=== PATIENT | male | born 1960 | race Hispanic/Latino ===

== ENCOUNTER → 2019-04-26 | Outpatient (CLI) | payer OTHER | END | disposition home or self-care (01) | LOC: RAH 11:34 | PROVIDERS: ATTEND Internal Medicine Cardiovascular Disease | DX: I25.10 Atherosclerotic heart disease of native coronary artery without angina pectoris (principal); K44.9 Diaphragmatic hernia without obstruction or gangrene; I10 Essential (primary) hypertension | CPT/HCPCS: 71250 ==

== ENCOUNTER → 2019-04-27 | Outpatient (CLI) | payer OTHER ==
[~2019-04-27] MED LIST: IOHEXOL 350 MG/ML 100ML INFUS..BTL IV ONE
== END | disposition home or self-care (01) ==
LOC: RAH 08:48
PROVIDERS: ATTEND Internal Medicine Cardiovascular Disease
DX: I25.10 Atherosclerotic heart disease of native coronary artery without angina pectoris (principal); I10 Essential (primary) hypertension
CPT/HCPCS: 75574; Q9967

== ENCOUNTER 2019-09-26 06:00 | Day surgery (SDC) | payer OTHER ==
[2019-09-23 12:40] VITALS: BP 151/87
[2019-09-23 13:03] LABS: BASOPHILS % (AUTO) 1.1 % (0.0-5.0); EOSINOPHILS % (AUTO) 3.2 % (0.0-8.0); LYMPHOCYTES % (AUTO) 40.9 % (21.0-51.0); MEAN CORPUSCULAR HEMOGLOBIN 30.6 pg (27.0-33.0); MEAN CORPUSCULAR HGB CONC 34.7 g/dL (32.0-36.0); MEAN CORPUSCULAR VOLUME 88.2 fL (79-99); MONOCYTES % (AUTO) 7.6 % (3.0-13.0); NEUTROPHILS % (AUTO) 47.2 % (40.0-77.0); PLATELET COUNT (AUTO) 233 K/uL (130-400); RED BLOOD CELL COUNT(AUTO) 4.87 MIL/uL (4.50-6.20); RED CELL DISTRIBUTION WIDTH 13.5 % (11.0-15.5); WHITE BLOOD COUNT (AUTO) 5.3 K/uL (4.8-10.8)
[2019-09-23 13:04] LABS: APPEARANCE,URINE Clear (CLEAR); BILIRUBIN,URINE Negative (NEGATIVE); COLOR,URINE Yellow (YELLOW); GLUCOSE, URINE (UA) Negative (NEGATIVE); KETONES,URINE Negative (NEGATIVE); LEUKOCYTE ESTERASE ,URINE Negative (NEGATIVE); NITRATE,URINE Negative (NEGATIVE); OCCULT BLOOD,URINE Negative (NEGATIVE); PROTEIN,URINE Negative (NEGATIVE)
[2019-09-23 13:10] LABS: CREATININE 0.7 mg/dL (0.5-1.5); POTASSIUM 3.6 mmol/L (3.5-5.1)
[2019-09-23 13:13] LABS: INR 0.96 (0.85-1.15); PROTHROMBIN TIME 10.1 SEC (9.6-11.6)
[~2019-09-26] VITALS: Ht 162.6 cm; Wt 72.9 kg
[2019-09-26] VITALS (9 sets, daily range): BP systolic 119–156; BP diastolic 72–87
[~2019-09-26 06:00] MED LIST changes: +ASPI-1181 PO; +ATOR20TA65 PO; +FINA5TAB41 PO; -IOHEXOL 350 MG/ML 100ML INFUS..BTL IV ONE; +METHYLPREDNISOLONE SOD SUCC 125MG/2ML VIAL IVP SCH; +METO25TA6 PO; +SODIUM CHLORIDE 0.9% 500ML 500 ML IV SCH
--- NOTE | 2019-09-26 06:10 | NUR ---
PRE-PROCEDURE RECEIVED TO DAY 14 VIA AMBULATING FOR SCHEDULED LHC. AWAKE IN NO ACUTE DISTRESS. DENIES CHEST PAIN/SOA. CONNECTED TO CONTINUOUS CARDIOPULMONARY MONITORING. SIDE RAILS UP X2, BED IN LOWEST POSITION, AND CALL LIGHT W/IN REACH.
[2019-09-26] MEDS ORDERED: SODIUM CHLORIDE 0.9% 1000ML 1,000 ML IV ONE (06:19)
[2019-09-26] MEDS ORDERED: MONT10TA21 PO (06:56)
[2019-09-26] MEDS ORDERED: NITROGLYCERIN 5 MG/ML 10 ML VIAL IV ONE (07:20)
[2019-09-26] MEDS ORDERED: IOHEXOL 350 MG/ML 100ML INFUS..BTL IV ONE (07:20)
[2019-09-26] MEDS ORDERED: MIDAZOLAM HCL 1 MG/ML 2ML VIAL ONE (07:20)
[2019-09-26] MEDS ORDERED: IOHEXOL-350 50ML VIAL IV ONE (07:20)
[2019-09-26] MEDS ORDERED: FENTANYL CITRATE PF 50 MCG/1 ML 2ML VIAL ONE (07:21)
[2019-09-26] MEDS ORDERED: LIDOCAINE HCL 2% 20ML ONE (07:21)
--- NOTE | 2019-09-26 07:25 | NUR ---
PROCEDURE TRANSFERRED TO [facility] VIA BED FOR SCHEDULED LHC BY MATTHEW CINTRON RN. AWAKE IN NO ACUTE DISTRESS. DENIES CHEST PAIN.
[2019-09-26] MEDS ORDERED: SODIUM CHLORIDE 0.9% 1000ML 1,000 ML IV SCH (08:25)
[2019-09-26] MEDS ORDERED: GLUCAGON 1MG KIT 1 MG ML IM PRN (08:30)
[2019-09-26] MEDS ORDERED: DEXTROSE 50%-WATER 50 ML DISP.SYRIN IV PRN (08:30)
[2019-09-26] MEDS ORDERED: NITROGLYCERIN 0.4 MG SL TAB SL PRN (08:30)
[2019-09-26] MEDS ORDERED: HYDRALAZINE HCL 20 MG/ML VIAL IV PRN (08:30)
[2019-09-26] MEDS ORDERED: METOPROLOL TARTRATE 1 MG/ML 5ML VIAL IV PRN (08:30)
--- NOTE | 2019-09-26 08:50 | NUR ---
POST-PROCEDURE RECEIVED FROM [facility] VIA BED S/P [facility] BY MATTHEW CINTRON RN. AWAKE IN NO ACUTE DISTRESS. CATH SITE W/ ANGIOSEAL. SITE W/O SIGNS OF BLEEDING, SOFT;NON-TENDER. DRESSING CLEAN, DRY, AND INTACT. EDUCATED ON IMPORTANCE OF KEEPING RIGHT LEG STRAIGHT AND HEAD FLAT. PT VERBALIZED UNDERSTANDING. CONNECTED TO CONTINUOUS CARDIOPULMONARY MONITORING. SIDE RAILS UP X2, BED IN LOWEST POSITION, AND CALL LIGHT W/IN REACH. Addendum: 09/26/19 at 1057 by MIAH GILL RN RN NS AT 100ML/HR
--- NOTE | 2019-09-26 09:30 | NUR ---
DIET ATE 100% OF BREAKFAST.
--- NOTE | 2019-09-26 10:50 | NUR ---
ACTIVITY HOB ELEVATED TO 20 DEGREES. CATH SITE W/O SIGNS OF BLEEDING;SITE SOFT, NON-TENDER;DRESSING CD&I.
--- NOTE | 2019-09-26 12:00 | NUR ---
ACTIVITY UP TO EDGE OF BED. CATH SITE W/O SIGNS OF BLEEDING;SITE SOFT, NON-TENDER; DSG CD&I.
--- NOTE | 2019-09-26 12:30 | NUR ---
DISCHARGE INSTRUCTIONS DAY PT DISCHARGE INSTRUCTION SHEET, MED REC, AND PT SUMMARY REVIEWED WITH PT AND . BOTH VERBALIZED UNDERSTANDING. INSTRUCTED TO APPLY DIRECT PRESSURE IF PUNCTURE SITE STARTS BLEEDING AND CALL 911. PT VERBALIZED UNDERSTANDING. OPPORTUNITY GIVEN TO ASK QUESTIONS. QUESTIONS ADDRESSED.
--- NOTE | 2019-09-26 12:35 | NUR ---
DISCHARGE DISCHARGED VIA W/C. AWAKE IN NO ACUTE DISTRESS. DENIES PAIN.
== END 2019-09-26 12:35 | disposition home or self-care (01) ==
LOC: DAH 06:00
PROVIDERS: ATTEND Internal Medicine Cardiovascular Disease
DX: I25.10 Atherosclerotic heart disease of native coronary artery without angina pectoris (principal); R07.9 Chest pain, unspecified; I10 Essential (primary) hypertension; E78.5 Hyperlipidemia, unspecified; Z79.899 Other long term (current) drug therapy; Z88.3 Allergy status to other anti-infective agents; Z98.890 Other specified postprocedural states; Z79.82 Long term (current) use of aspirin; Z82.49 Family history of ischemic heart disease and other diseases of the circulatory system; Z83.3 Family history of diabetes mellitus
CPT/HCPCS: 36415; 71045; 80048; 81003; 85025; 85610; 85730; 93005; 93458; A4215; A4216; A4221; A4222; A4223 ×3; A4606; A4663; C1760; C1894 ×2; J1644; J2250; J2930; J3010; J3490 ×2; J7030; Q9965; Q9967 ×2; 99156; 99157

== ENCOUNTER 2019-09-26 16:31 | Emergency (ER) | payer OTHER ==
[~2019-09-26 16:31] MED LIST changes: -METHYLPREDNISOLONE SOD SUCC 125MG/2ML VIAL IVP SCH; +MONT10TA21 PO; -SODIUM CHLORIDE 0.9% 500ML 500 ML IV SCH
[2019-09-26] MEDS ORDERED: ACETAMINOPHEN EXTRA STRENGTH 500 MG TABLET ONE (17:12)
[2019-09-26 17:16] LABS: BASOPHILS % (AUTO) 0.1 % (0.0-5.0); HEMATOCRIT 42.1 % (42-54); LYMPHOCYTES % (AUTO) 7.4 % (21.0-51.0); MEAN CORPUSCULAR HEMOGLOBIN 28.8 pg (27.0-33.0); MEAN CORPUSCULAR HGB CONC 33.5 g/dL (32.0-36.0); MEAN CORPUSCULAR VOLUME 85.9 fL (79-99); MONOCYTES % (AUTO) 2.7 % (3.0-13.0); NEUTROPHILS % (AUTO) 89.1 % (40.0-77.0); PLATELET COUNT (AUTO) 272 K/uL (130-400); RED CELL DISTRIBUTION WIDTH 12.6 % (11.0-15.5)
[2019-09-26 17:31] LABS: CREATININE 0.9 mg/dL (0.5-1.5); POTASSIUM 3.5 mmol/L (3.5-5.1)
[2019-09-26 17:40] LABS: INR 0.99 (0.85-1.15); PARTIAL THROMBOPLASTIN TIME 22.4 SEC (26.3-35.5); PROTHROMBIN TIME 10.4 SEC (9.6-11.6)
== END 2019-09-26 18:47 | disposition home or self-care (01) ==
LOC: EDH 16:31
DX: I97.630 Postprocedural hematoma of a circulatory system organ or structure following a cardiac catheterization (principal); Y84.8 Other medical procedures as the cause of abnormal reaction of the patient, or of later complication, without mention of misadventure at the time of the procedure; Y82.8 Other medical devices associated with adverse incidents
CPT/HCPCS: 36415; 80048; 85025; 85610; 85730

== ENCOUNTER → 2022-01-10 | Outpatient (CLI) | payer OTHER ==
[~2022-01-10] MED LIST changes: -ASPI-1181 PO; +ASPI-1443 PO; -MONT10TA21 PO
== END | disposition home or self-care (01) ==
LOC: SHCH 12:33
PROVIDERS: ATTEND Internal Medicine Cardiovascular Disease
DX: I11.9 Hypertensive heart disease without heart failure (principal); E11.9 Type 2 diabetes mellitus without complications; E78.5 Hyperlipidemia, unspecified
CPT/HCPCS: 93306